=== PATIENT | female | born 2000 | race Hispanic/Latino ===

== ENCOUNTER 2021-07-20 09:01 | Emergency (ER) | payer OTHER, SELFPAY ==
[2021-07-20 09:12] VITALS: BP 120/77; PULSE 83; RESP 18; TEMP 36.9; O2SAT 98; BMI 25.4
--- NOTE | 2021-07-20 09:25 | ED_ITS ---
HPI - URI/Sore Throat General Chief Complaint: Upper Respiratory Symptoms Stated Complaint: Covid Symptoms- Cough, tightness in chest Time Seen by Provider: 07/20/21 09:04 Source: patient Mode of arrival: Ambulatory History of Present Illness HPI Narrative: 21-year-old female nonsmoker with history of asthma presents with a chief complaint of runny nose, sneezing, nasal congestion and cough with some burning in her chest over the past day or so. Her symptoms began yesterday and felt much like her typical seasonal allergies, however this morning she woke up and felt a bit achy so she wanted to be seen and evaluated. She denies any e xposure to other persons with similar symptoms. She has had no fever or chills. She denies nausea, vomiting or diarrhea Related Data Allergies Allergy/AdvReac Type Severity Reaction Status Date / Time shellfish derived Allergy Verified 07/20/21 09:12 Review of Systems Review of Systems Narrative: GENERAL: See HPI HEENT: See HPI RESPIRATORY: See HPI CARDIOVASCULAR: Denies chest pain, palpitations, orthopnea, edema, GASTROINTESTINAL: Denies nausea, vomiting, abdominal pain, diarrhea, constipation, melena. : Denies dysuria, frequency, incontinence, hematuria, urinary retention. MUSCULOSKELETAL: denies weakness, joint pain, or bony pain SKIN: Denies rash, skin lesions, or other NEUROLOGIC: Denies weakness, headache, numbness, change in speech, confusion, seizures, incoordination. PSYCHIATRIC: No concerning psychosocial issues. 12 point review of systems is negative except for those stated above Exam Narrative Exam Narrative: GEN: AOx3 and in minimal distress. No evidence of increased work of breathing, stable vitals EYES: Pupils are equal, round, and reactive to light and accommodation. Extraoccular muscles are intact bilaterally. There is no subconjunctival hemorrhage or exudate. ENT: Clear nasal drainage bilaterally, cleared drainage posterior pharynx, no pharyngeal erythema tonsillar swelling or exudate. CHEST: Lungs are clear to auscultation bilaterally and free of wheezes, rales, or rhonchi. Heart rate is regular rhythm, there are no murmurs, clicks, rubs, or gallops. There is no chest wall tenderness. ABD: Abdomen is soft and nontender. There is no guarding or rebound. Bowel sounds are normal in all 4 quadrants. There is no mass or organomegaly. EXT: Full painless ROM of all extremities with no loss of sensation or strength. SKIN: Warm, pink, and dry. No erythema or rash Initial Vital Signs Initial Vital Signs: Vital Signs Temperature 98.4 F 07/20/21 09:12 Pulse Rate 83 07/20/21 09:12 Respiratory Rate 18 07/20/21 09:12 Blood Pressure 120/77 07/20/21 09:12 Pulse Oximetry 98 07/20/21 09:12 Course Orders Ordered: ED Orders 07/20/21 09:10 COVID19 -Nasal swab/Pre-Proc Stat Vital Signs Vital signs: Vital Signs - 8 hr 07/20/21 09:12 Temperature 98.4 F Pulse Rate 83 Respiratory Rate 18 Blood Pressure 120/77 Pulse Oximetry 98 MDM - URI/Sore Throat Lab Data Labs: Lab Results 07/20/21 Range/Units 09:01 SARS-CoV-2 (PCR) Negative (Negative) Discharge Plan Departure Patient Disposition: Home Clinical Impression: Upper respiratory infection Qualifiers: URI type: unspecified viral URI Qualified Code(s): J06.9 - Acute upper respiratory infection, unspecified Instructions: DI for Viral Upper Respiratory Infection -- Adult Activity Restrictions/Additional Instructions: *You have been diagnosed with [viral upper respiratory infection] *What to do: *Please consider [id number] cough and cold medications which would include an antihistamine and a decongestant as we discussed. *Please follow up with your primary care provider in 2-3 days, call for an appointment. Let them know you were seen in the Emergency Department and that we ask that you be seen in follow up. We will electronically transmit a record of today's note if your PCP is in our system *If you do not have a primary care provider please contact the [facility] R pramod line at [phone]. They will ask some questions about your medical history and help get you set up with a doctor in the community. *Return to Emergency Department if you should have any new, worsening or concerning symptoms, such as [fever greater than 101 F, shaking chills, worsening pain, persistent vomiting or other bothersome symptoms] Stand Alone Forms: Work Release Note
[2021-07-20 09:49] LABS: COVID19 -Nasal RAPID Negative (Negative)
[2021-07-20 09:57] VITALS: BP 118/64; PULSE 83; RESP 16; O2SAT 98
== END 2021-07-20 09:59 | disposition home or self-care (01) ==
PROVIDERS: Emergency Provider Emergency Medicine
DX: J06.9 Acute upper respiratory infection, unspecified (principal); R05 Cough; Z20.822 Contact with and (suspected) exposure to COVID-19
CPT/HCPCS: 87635; 99281; 99282; C9803